=== PATIENT | male | born 1970 | race African-American/Black ===

== ENCOUNTER 2017-03-15 17:08 | Emergency (ER) | payer SELFPAY ==
[~2017-03-15] VITALS: Ht 177.8 cm; Wt 73.0 kg
[2017-03-15 20:42] LABS: BASOPHILS % 0.9 % (0.0-2.0); EOSINOPHILS % 0.7 % (0.0-5.0); HEMATOCRIT. 50.1 % (42.0-52.0); HEMOGLOBIN. 16.9 g/dL (14.0-18.0); LYMPHOCYTES % 44.4 % (20.0-50.0); MEAN CORPUSCULAR HEMOGLOBIN 29.1 pg (28.0-32.0); MEAN CORPUSCULAR VOLUME 86.3 fL (80.0-94.0); MEAN PLATELET VOLUME 8.3 fl (7.4-10.4); MONOCYTES % 11.8 % (2.0-8.0); NEUTROPHILS % 42.2 % (40.0-76.0); PLATELET 214 x1000/uL (130-400); RED CELL DISTRIBUTION WIDTH 14.1 % (11.6-14.6)
[2017-03-15 20:49] LABS: INR 1.1; PARTIAL THROMBOPLASTIN TIME 28.4 sec (23.4-31.0); PROTHROMBIN TIME 11.7 sec (9.4-11.6)
[2017-03-15 20:50] LABS: CHLORIDE 102 mEq/L (98-107)
[2017-03-15 20:53] LABS: CARBON DIOXIDE 27 mEq/L (21-32)
[2017-03-15 20:58] LABS: TROPONIN I < 0.02 ng/mL (0.00-0.04)
[2017-03-16 00:15] VITALS: BP 128/71
== END 2017-03-16 00:35 | disposition home or self-care (01) ==
LOC: ER 17:41
DX: R55 Syncope and collapse (principal); R42 Dizziness and giddiness; R06.02 Shortness of breath; R53.1 Weakness; R03.0 Elevated blood-pressure reading, without diagnosis of hypertension; K29.50 Unspecified chronic gastritis without bleeding
CPT/HCPCS: 36415; 71010; 80053; 83690; 84484; 85025; 85610; 85730; 93005; 99285; Z7610

== ENCOUNTER 2017-09-16 17:53 | Emergency (ER) | payer MEDICAID ==
[~2017-09-16] VITALS: Ht 175.3 cm; Wt 75.0 kg
[2017-09-16 19:42] VITALS: BP 118/68
== END 2017-09-16 19:53 | disposition home or self-care (01) ==
LOC: ER 19:25
DX: J06.9 Acute upper respiratory infection, unspecified (principal)
CPT/HCPCS: 71045; 99283

== ENCOUNTER 2018-11-12 06:04 | Emergency (ER) | payer MEDICAID ==
[~2018-11-12] VITALS: Ht 175.3 cm; Wt 78.0 kg
[2018-11-12 06:16] VITALS: BP 111/72
[2018-11-12 07:37] LABS: CLARITY URINE CLOUDY (CLEAR); COLOR URINE YELLOW (YELLOW); KETONES URINE NEGATIVE (NEGATIVE); LEUKOCYTE ESTERASE URINE 3+ (NEGATIVE); NITRITE URINE NEGATIVE (NEGATIVE); OCCULT BLOOD URINE 3+ (NEGATIVE); PH URINE 6.5 (4.5-8.0); PROTEIN URINE 1+ (NEGATIVE); SPECIFIC GRAVITY URINE 1.017 (1.005-1.030)
[2018-11-12] MEDS: CEFTRIAXONE 1 G PREMIX 50 ML IV NR ×2 (08:26→08:46)
[2018-11-12 08:49] LABS: HEMATOCRIT. 48.1 % (42.0-52.0); HEMOGLOBIN. 15.8 g/dL (14.0-18.0); MEAN CORPUSCULAR HEMOGLOBIN 28.9 pg (28.0-32.0); MEAN CORPUSCULAR VOLUME 87.7 fL (80.0-94.0); MEAN PLATELET VOLUME 9.1 fl (7.4-10.4); PLATELET 199 x1000/uL (130-400); RED BLOOD CELL COUNT 5.48 mill/uL (4.7-6.1); RED CELL DISTRIBUTION WIDTH 14.5 % (11.6-14.6)
[2018-11-12 08:55] LABS: CHLORIDE 104 mEq/L (98-107)
[2018-11-12 09:36] LABS: PLATELET ESTIMATE NORMAL
== END 2018-11-12 10:29 | disposition home or self-care (01) ==
LOC: ER 06:04
DX: N39.0 Urinary tract infection, site not specified (principal)
CPT/HCPCS: 36415; 74176; 80053; 81003; 85025; 87077; 87086; 87186; 96365; 99284; J0696; Z7610

== ENCOUNTER 2019-03-15 21:37 | Inpatient (IN) | payer MEDICAID ==
[~2019-03-15] VITALS: Ht 175.3 cm; Wt 87.2 kg
[2019-03-15] MEDS ORDERED: SODIUM CHLORIDE 0.9% 1,000 ML IV ONE (23:43)
[2019-03-16 00:11] LABS: BASOPHILS % 0.7 % (0.0-2.0); EOSINOPHILS % 1.2 % (0.0-5.0); HEMATOCRIT. 47.1 % (42.0-52.0); HEMOGLOBIN. 15.8 g/dL (14.0-18.0); LYMPHOCYTES % 32.7 % (20.0-50.0); MEAN CORPUSCULAR HEMOGLOBIN 29.2 pg (28.0-32.0); MEAN CORPUSCULAR VOLUME 87.2 fL (80.0-94.0); MEAN PLATELET VOLUME 8.2 fl (7.4-10.4); MONOCYTES % 13.1 % (2.0-8.0); NEUTROPHILS % 52.3 % (40.0-76.0); PLATELET 222 x1000/uL (130-400); RED BLOOD CELL COUNT 5.41 mill/uL (4.7-6.1); RED CELL DISTRIBUTION WIDTH 14.5 % (11.6-14.6)
[2019-03-16 00:18] LABS: CHLORIDE 103 mEq/L (98-107)
[2019-03-16 00:22] LABS: ETHANOL BLOOD < 10 mg/dL
[2019-03-16 01:05] LABS: CLARITY URINE CLEAR (CLEAR); COLOR URINE YELLOW (YELLOW); KETONES URINE NEGATIVE (NEGATIVE); LEUKOCYTE ESTERASE URINE TRACE (NEGATIVE); NITRITE URINE NEGATIVE (NEGATIVE); OCCULT BLOOD URINE NEGATIVE (NEGATIVE); PROTEIN URINE NEGATIVE (NEGATIVE); SPECIFIC GRAVITY URINE 1.016 (1.005-1.030); UROBILINOGEN URINE 0.2 E.U./dL (0.2-1.0)
[2019-03-16 01:14] LABS: *BENZODIAZEPINES SCREEN URINE NEGATIVE (NEGATIVE); *COCAINE SCREEN URINE NEGATIVE (NEGATIVE); METHADONE URINE SCREEN NEGATIVE (NEGATIVE); OPIATES URINE SCREEN NEGATIVE (NEGATIVE)
[2019-03-16 01:15] LABS: *AMPHETAMINES SCREEN URINE NEGATIVE (NEGATIVE); *BARBITURATES SCREEN URINE NEGATIVE (NEGATIVE); CANNABINOID URINE SCREEN NEGATIVE (NEGATIVE); PHENCYCLIDINE URINE SCREEN NEGATIVE (NEGATIVE)
[2019-03-16] MEDS ORDERED: MAGNESIUM/ALUMINUM HYDROXIDE/SIMETHICONE 30ML UDC PO PRN (07:30)
[2019-03-16] MEDS ORDERED: ZOLPIDEM TARTRATE 5MG TABLET PO PRN (07:30)
[2019-03-16] MEDS ORDERED: GUAIFENESIN 200MG/10ML SUGAR FREE UDC PO PRN (07:30)
[2019-03-16] MEDS ORDERED: DOCUSATE SODIUM 100MG CAPSULE PO PRN (07:30)
[2019-03-16] MEDS ORDERED: IPRATROPIUM/ALBUTEROL 0.5-3(2.5)MG/3ML NEB NEB PRN (07:30)
[2019-03-16] MEDS ORDERED: ONDANSETRON HCL 4MG/2ML INJ IV PRN (07:30)
[2019-03-16] MEDS ORDERED: CLONIDINE 0.1MG TABLET PO PRN (07:30)
[2019-03-16] MEDS ORDERED: KETOROLAC 15MG/ML VIAL IV PRN (07:30)
[2019-03-16] MEDS ORDERED: ACETAMINOPHEN 325MG TABLET PO PRN (07:30)
[2019-03-16] MEDS ORDERED: NITROGLYCERIN 0.4MG TABLET SL SL PRN (07:30)
[2019-03-16] MEDS ORDERED: LORAZEPAM 0.5MG TABLET PO PRN (07:30)
[2019-03-16 07:52] LABS: T4 FREE 0.93 ng/dL (0.76-1.46)
[2019-03-16 08:09] LABS: FOLIC ACID (FOLATE) SERUM 11.7 ng/mL (>5.38)
[2019-03-16 08:30] VITALS: BP 130/86
[2019-03-16] MEDS: ENOXAPARIN 40MG/0.4ML SYR SUBCUT SCH (09:00)
[2019-03-16] MEDS: FAMOTIDINE 20MG TABLET PO SCH ×2 (09:35→21:27)
[2019-03-16] MEDS: AMOXICILLIN/POTASSIUM CLAVULANATE 875/125MG TAB PO SCH ×2 (09:35→21:27)
[2019-03-16] MEDS: ASPIRIN 81MG EC TABLET PO SCH (09:36)
[2019-03-16 11:58] VITALS: BP 120/81
[2019-03-16] MEDS ORDERED: AM250 PO (14:32)
[2019-03-16 16:00] VITALS: BP 124/67
[2019-03-16 17:12] LABS: CREATINE KINASE 117 IU/L (39-308)
[2019-03-16 17:13] LABS: CREATINE KINASE MB FRACTION < 1.0 ng/mL (0.5-3.6)
[2019-03-16 20:00] VITALS: BP 114/67
[2019-03-17] VITALS: BP 104/64
[2019-03-17 01:49] LABS: CREATINE KINASE 98 IU/L (39-308)
[2019-03-17 01:50] LABS: CREATINE KINASE MB FRACTION < 1.0 ng/mL (0.5-3.6)
[2019-03-17 04:00] VITALS: BP 117/72
[2019-03-17 08:00] VITALS: BP 105/55
[2019-03-17] MEDS: FAMOTIDINE 20MG TABLET PO SCH (08:56)
[2019-03-17] MEDS: ENOXAPARIN 40MG/0.4ML SYR SUBCUT SCH (08:56)
[2019-03-17] MEDS: AMOXICILLIN/POTASSIUM CLAVULANATE 875/125MG TAB PO SCH (08:56)
[2019-03-17] MEDS: ASPIRIN 81MG EC TABLET PO SCH (08:56)
[2019-03-17 10:34] VITALS: BP 127/77
[2019-03-17 12:00] VITALS: BP 127/77
== END 2019-03-17 13:51 | disposition home or self-care (01) | DRG 204 ==
LOC: ER 21:37 → 8WST 03-16 04:53 → ENRESERV 03-16 07:17
PROVIDERS: ADMIT Internal Medicine; ATTEND Internal Medicine
DX: R55 Syncope and collapse (principal); F17.210 Nicotine dependence, cigarettes, uncomplicated; H81.10 Benign paroxysmal vertigo, unspecified ear; K04.7 Periapical abscess without sinus; R94.31 Abnormal electrocardiogram [ECG] [EKG]; Z88.1 Allergy status to other antibiotic agents
CPT/HCPCS: 36415; 71045; 80061; 80305; 80320; 81003; 82550; 82553; 82607; 82746; 82962; 83036; 83540; 83550; 83880; 84439; 84443; 84484; 93005; 93970; 96360; 96361; 99285; J1650; J7030; G0480

== ENCOUNTER 2019-11-19 08:10 | Emergency (ER) | payer MEDICAID ==
[~2019-11-19] VITALS: Ht 175.3 cm; Wt 77.2 kg
[~2019-11-19 08:10] MED LIST: AM250 PO
[2019-11-19 09:46] LABS: CLARITY URINE CLEAR (CLEAR); COLOR URINE YELLOW (YELLOW); KETONES URINE NEGATIVE (NEGATIVE); LEUKOCYTE ESTERASE URINE NEGATIVE (NEGATIVE); NITRITE URINE NEGATIVE (NEGATIVE); OCCULT BLOOD URINE NEGATIVE (NEGATIVE); PROTEIN URINE NEGATIVE (NEGATIVE); SPECIFIC GRAVITY URINE 1.008 (1.005-1.030); UROBILINOGEN URINE 0.2 E.U./dL (0.2-1.0)
[2019-11-19 10:11] VITALS: BP 119/78
== END 2019-11-19 10:11 | disposition home or self-care (01) ==
LOC: ER 08:13
DX: R30.0 Dysuria (principal); R19.7 Diarrhea, unspecified
CPT/HCPCS: 81003; 99283

== ENCOUNTER 2021-04-08 17:36 | Emergency (ER) | payer MEDICAID ==
[~2021-04-08] VITALS: Ht 175.3 cm; Wt 79.0 kg
[2021-04-08 18:38] LABS: CLARITY URINE CLEAR (CLEAR); COLOR URINE YELLOW (YELLOW); KETONES URINE TRACE (NEGATIVE); LEUKOCYTE ESTERASE URINE 1+ (NEGATIVE); NITRITE URINE NEGATIVE (NEGATIVE); OCCULT BLOOD URINE NEGATIVE (NEGATIVE); PH URINE 5.5 (4.5-8.0); PROTEIN URINE NEGATIVE (NEGATIVE); SPECIFIC GRAVITY URINE 1.021 (1.005-1.030); UROBILINOGEN URINE 0.2 E.U./dL (0.2-1.0)
[2021-04-08] MEDS ORDERED: PHEN51GE9 TP (19:30)
[2021-04-08] MEDS ORDERED: CEPH500C2 MT (19:32)
[2021-04-08] MEDS ORDERED: PRAM56OI TP (19:32)
[2021-04-08] MEDS ORDERED: SULF1TAB48 MT (19:48)
[2021-04-08 19:50] VITALS: BP 136/89
== END 2021-04-08 19:58 | disposition home or self-care (01) ==
LOC: ER 17:36
DX: N39.0 Urinary tract infection, site not specified (principal); K64.4 Residual hemorrhoidal skin tags; Z79.899 Other long term (current) drug therapy
CPT/HCPCS: 81003; 99283

== ENCOUNTER 2021-06-05 18:22 | Emergency (ER) | payer MEDICAID ==
[~2021-06-05] VITALS: Ht 177.8 cm; Wt 78.0 kg
[~2021-06-05 18:22] MED LIST changes: +CEPH500C2 MT; +PRAM56OI TP; +SULF1TAB48 MT
[2021-06-05] MEDS ORDERED: KETOROLAC 60MG/2ML VIAL IM STA (19:03)
[2021-06-05] MEDS ORDERED: AMOXICILLIN 500 MG CAPSULE PO ONE (19:15)
[2021-06-05 19:56] LABS: HEMOGLOBIN. 15.9 g/dL (14.0-18.0); MEAN CORPUSCULAR HEMOGLOBIN 28.8 pg (28.0-32.0); MEAN CORPUSCULAR VOLUME 86.6 fL (80.0-94.0); PLATELET 205 x1000/uL (130-400); RED BLOOD CELL COUNT 5.54 mill/uL (4.7-6.1); RED CELL DISTRIBUTION WIDTH 14.6 % (11.6-14.6)
[2021-06-05 20:02] LABS: CHLORIDE 103 mEq/L (98-107)
[2021-06-05 20:55] LABS: PLATELET ESTIMATE NORMAL
[2021-06-05 21:04] LABS: CLARITY URINE CLEAR (CLEAR); COLOR URINE YELLOW (YELLOW); KETONES URINE NEGATIVE (NEGATIVE); LEUKOCYTE ESTERASE URINE 2+ (NEGATIVE); NITRITE URINE NEGATIVE (NEGATIVE); OCCULT BLOOD URINE TRACE (NEGATIVE); PH URINE 5.5 (4.5-8.0); PROTEIN URINE NEGATIVE (NEGATIVE)
[2021-06-05] MEDS ORDERED: AMOX-494 MT (21:21)
[2021-06-05] MEDS ORDERED: CIPR500T5 MT (21:21)
[2021-06-05] MEDS ORDERED: IBUP-2028 MT (21:21)
[2021-06-05 21:35] VITALS: BP 137/83
== END 2021-06-05 21:40 | disposition home or self-care (01) ==
LOC: ER 18:22
DX: H66.93 Otitis media, unspecified, bilateral (principal); N39.0 Urinary tract infection, site not specified
CPT/HCPCS: 36415; 74176; 80053; 81003; 85025; 99284; J1885

== ENCOUNTER 2021-09-26 09:59 | Emergency (ER) | payer MEDICAID ==
[~2021-09-26] VITALS: Ht 175.3 cm; Wt 77.0 kg
[~2021-09-26 09:59] MED LIST changes: +AMOX-494 MT; +CIPR500T5 MT; +IBUP-2028 MT; +IBUP-2030 MT; +TRAM50TA MT
[2021-09-26] MEDS ORDERED: KETOROLAC 30MG/ML VIAL IV STA (10:38)
[2021-09-26] MEDS ORDERED: MECLIZINE 25MG TABLET PO ONE (10:45)
[2021-09-26] MEDS ORDERED: METOCLOPRAMIDE HCL 10MG/2ML VIAL IV ONE (10:45)
[2021-09-26] MEDS ORDERED: SODIUM CHLORIDE 0.9% 1,000 ML IV ONE (10:45)
[2021-09-26 10:57] VITALS: BP 122/80
[2021-09-26] MEDS ORDERED: TOPUD PO (11:44)
[2021-09-26] MEDS ORDERED: MECL-159 PO (11:44)
== END 2021-09-26 12:29 | disposition home or self-care (01) ==
LOC: ER 09:59
DX: H81.399 Other peripheral vertigo, unspecified ear (principal)
CPT/HCPCS: 93005; 96361; 96374; 96375; 99284; J1885; J2765; J7030; J8597

== ENCOUNTER 2021-11-20 23:08 | Emergency (ER) | payer MEDICAID ==
[~2021-11-20] VITALS: Ht 175.3 cm; Wt 91.6 kg
[~2021-11-20 23:08] MED LIST changes: +MECL-159 PO; +TOPUD PO
[2021-11-20 23:16] VITALS: BP 137/90
[2021-11-21 01:19] LABS: CLARITY URINE CLEAR (CLEAR); COLOR URINE YELLOW (YELLOW); KETONES URINE NEGATIVE (NEGATIVE); LEUKOCYTE ESTERASE URINE NEGATIVE (NEGATIVE); NITRITE URINE NEGATIVE (NEGATIVE); OCCULT BLOOD URINE NEGATIVE (NEGATIVE); PH URINE 6.5 (4.5-8.0); PROTEIN URINE NEGATIVE (NEGATIVE); SPECIFIC GRAVITY URINE 1.023 (1.005-1.030)
[2021-11-21] MEDS ORDERED: DOXYCYCLINE HYCLATE 100MG CAPSULE PO ONE (02:00)
[2021-11-21] MEDS ORDERED: CEFTRIAXONE SODIUM 500 MG/VIAL IM ONE (02:00)
[2021-11-21] MEDS ORDERED: DOXY100C5 MT (02:01)
[2021-11-23 06:09] LABS: NEISSERIA GONORRHOEAE NAA Negative (Negative)
== END 2021-11-21 02:21 | disposition home or self-care (01) ==
LOC: ER 23:57
DX: R10.9 Unspecified abdominal pain (principal); R30.0 Dysuria; Z87.440 Personal history of urinary (tract) infections
CPT/HCPCS: 81003; 87491; 87591; 96372; 99283; J0696

== ENCOUNTER 2022-08-10 21:15 | Emergency (ER) | payer MEDICAID ==
[~2022-08-10] VITALS: Ht 175.3 cm; Wt 77.0 kg
[~2022-08-10 21:15] MED LIST changes: +DOXY100C5 MT
[2022-08-10 22:10] VITALS: BP 125/76
== END 2022-08-11 00:24 | disposition home or self-care (01) ==
LOC: ER 21:15
DX: M67.431 Ganglion, right wrist (principal); Z79.899 Other long term (current) drug therapy
CPT/HCPCS: 99281

== ENCOUNTER 2022-08-26 23:19 | Emergency (ER) | payer MEDICAID ==
[~2022-08-26] VITALS: Ht 175.3 cm; Wt 77.5 kg
[2022-08-26 23:58] VITALS: BP 127/88
== END 2022-08-27 02:37 | disposition left against medical advice (07) ==
LOC: ER 23:19
DX: Z53.21 Procedure and treatment not carried out due to patient leaving prior to being seen by health care provider (principal)
CPT/HCPCS: 99281

== ENCOUNTER 2023-05-17 03:31 | Emergency (ER) | payer MEDICAID ==
[~2023-05-17] VITALS: Ht 175.3 cm; Wt 77.0 kg
[~2023-05-17 03:31] MED LIST changes: -AM250 PO; -AMOX-494 MT; -CEPH500C2 MT; -CIPR500T5 MT; -DOXY100C5 MT; -IBUP-2028 MT; -IBUP-2030 MT; -MECL-159 PO; -PRAM56OI TP; -TOPUD PO; -TRAM50TA MT
[2023-05-17 04:43] VITALS: BP 136/91; PULSE 74; RESP 18; TEMP 98.2; O2SAT 99
[2023-05-17] MEDS ORDERED: TOPUD MT (10:02)
[2023-05-17] MEDS ORDERED: AMOX-494 MT (10:02)
[2023-05-17] MEDS ORDERED: IBUP-1523 MT (10:02)
== END 2023-05-17 10:59 | disposition home or self-care (01) ==
LOC: ER 03:31
DX: J03.90 Acute tonsillitis, unspecified (principal)
CPT/HCPCS: 99283

== ENCOUNTER 2024-11-05 09:54 | Emergency (ER) | payer MEDICAID ==
[~2024-11-05] VITALS: Ht 175.3 cm; Wt 86.2 kg
[~2024-11-05 09:54] MED LIST changes: +AMOX-494 MT; +IBUP-1523 MT; +TOPUD MT
[2024-11-05 10:08] VITALS: TEMP 36.7; O2SAT 98
[2024-11-05 11:16] LABS: BASOPHILS % 0.5 % (0.0-2.0); EOSINOPHILS % 1.2 % (0.0-5.0); HEMATOCRIT. 51.1 % (42.0-52.0); HEMOGLOBIN. 16.6 g/dL (14.0-18.0); LYMPHOCYTES % 34.7 % (20.0-50.0); MEAN CORPUSCULAR HEMOGLOBIN 28.1 pg (28.0-32.0); MEAN CORPUSCULAR HGB CONC 32.4 g/dL (31.0-37.0); MEAN CORPUSCULAR VOLUME 86.6 fL (80.0-94.0); MEAN PLATELET VOLUME 8.5 fl (7.4-10.4); MONOCYTES % 11.5 % (2.0-8.0); NEUTROPHILS % 52.1 % (40.0-76.0); PLATELET 212 x1000/uL (130-400); RED CELL DISTRIBUTION WIDTH 14.8 % (11.6-14.6); WHITE BLOOD COUNT 6.4 x1000/uL (4.5-11.0)
[2024-11-05 11:28] LABS: CHLORIDE 101 mEq/L (98-107); POTASSIUM 4.5 mEq/L (3.5-5.1); SODIUM 137 mEq/L (136-145)
[2024-11-05 11:29] LABS: CALCIUM 9.8 mg/dL (8.7-10.4); CARBON DIOXIDE 27 mEq/L (21-32)
[2024-11-05 11:34] LABS: CREATININE 1.3 mg/dL (0.6-1.3); GLUCOSE 122 mg/dL (70-105); UREA NITROGEN BLOOD 8 mg/dL (9-23)
[2024-11-05 11:35] LABS: TROPONIN I HIGH SENSITIVITY < 4 ng/L (3.0-53)
[2024-11-05 11:36] LABS: PROTHROMBIN TIME 10.9 sec (9.6-11.0)
[2024-11-05 12:59] VITALS: BP 146/86; PULSE 66; RESP 16; O2SAT 99
== END 2024-11-05 13:44 | disposition home or self-care (01) ==
LOC: ER 09:54
DX: R53.1 Weakness (principal); Z79.899 Other long term (current) drug therapy; Z98.890 Other specified postprocedural states
CPT/HCPCS: 36415; 71045; 80048; 83735; 83880; 84484; 85025; 93005; 99285

== ENCOUNTER 2025-05-08 19:57 | Emergency (ER) | payer OTHER ==
[~2025-05-08] VITALS: Ht 175.3 cm; Wt 91.0 kg
[2025-05-08 20:10] VITALS: BP 131/84; TEMP 36.7; O2SAT 99
[2025-05-08 20:11] VITALS: PULSE 67; RESP 18; O2SAT 97
[2025-05-08] MEDS ORDERED: TOPUD MT (21:24)
== END 2025-05-08 22:22 | disposition home or self-care (01) ==
LOC: ER 19:57
DX: M25.521 Pain in right elbow (principal); Z79.899 Other long term (current) drug therapy
CPT/HCPCS: 73070; 99283